=== PATIENT | male | born 1970 | race Caucasian/White ===

== ENCOUNTER → 2023-02-01 13:34 | Outpatient (BNVA) | payer MEDICAID, SELFPAY | PROVIDERS: PCP Family Medicine; Visit Provider Family Medicine | DX: S49.91XA Unspecified injury of right shoulder and upper arm, initial encounter (principal); X58.XXXA Exposure to other specified factors, initial encounter | CPT/HCPCS: 73030 ==

== ENCOUNTER 2023-12-03 23:03 | Emergency (ER) | payer MEDICAID, SELFPAY ==
[2023-12-03 23:04] VITALS: BP 165/95; PULSE 60; RESP 18; TEMP 36.7; O2SAT 93; BMI 28.3
--- NOTE | 2023-12-03 23:06 | W.ED.BACK ---
HPI - Back Pain/Injury General: Chief Complaint: General Medical Stated Complaint: back pain Time Seen by Provider: 12/03/23 23:06 History of Present Illness: 53-year-old male presents emergency department with complaints of left lower back and left lower quadrant abdominal pain that became worse tonight. He states the pain is intermittent and sharp stabbing type pain that when it occurs is a 6 out of 10. He states he also had an episode of nausea with vomiting this evening when the pain started. He states he feels like he is having difficulty starting his urinary stream. He states he does have a history of recent back surgery but has been doing well with that since the surgery. He denies numbness or tingling to the extremities. He denies fevers chills or night sweats. Associated symptoms: Reports abdominal pain, nausea and vomiting Review of Systems General: Reports: 10 or more systems reviewed and unremarkable except in HPI and below GI: Reports: abdominal pain, nausea and vomiting : Reports: flank pain Physical Exam Narrative: EXAM NARRATIVE: Constitutional: the patient appears well nourished and of normal development. Vital signs as documented. He does appear to be mildly uncomfortable. Alert and oriented-to person, place, time and situation. Head, eyes, ears, nose, mouth, throat: Normocephalic, atraumatic. Pupils-equal, round, reactive to light. No scleral icterus. Normal-appearing external ears. Normal appearing nasal turbinates, no drainage. No obvious oral lesions, posterior oropharynx without erythema or exudates. Neck: Supple, trachea is midline, no lymphadenopathy, no jugular venous distension, thyromegaly, or carotid bruits. Carotid upstrokes are brisk bilaterally. Lungs: clear to auscultation to all lung salazar. Symmetrical rise and fall of chest, no obvious signs of increased work of breathing at present. Cardiac: Regular rate and rhythm, positive S1, S2. No murmurs, rubs or gallops that I can appreciate Abdomen: Soft, non-tender to palpation, normal active bowel sounds to all quadrants. No palpable masses, no organomegaly and abdominal bruits. Back: No obvious deformity, no signs of infection at present. Positive slight left CVA tenderness. Extremities: 2+ pulses in the upper extremities that are equal bilaterally, 2+ pulses in the lower extremities that are equal bilaterally. Non-edematous. Moves all extremities well, sensation to all extremities are noted. Skin: Warm, dry, intact. Course Vital Signs: Vital signs: Vital Signs Temperature 98.0 F 12/03/23 23:04 Pulse Rate 66 12/04/23 02:04 Respiratory Rate 17 12/04/23 02:04 Blood Pressure 130/83 12/04/23 02:04 Pulse Oximetry 94 12/04/23 02:04 Oxygen Delivery Me thod Room Air 12/04/23 00:08 MDM - Back Pain/Injury Medical Decision Making Physical exam completed and documented I did obtain a CBC which demonstrated elevated white blood cell count of 13.1, CMP was obtained and demonstrated a elevated creatinine of 1.3 and his urinalysis reviewed and demonstrated 2+ ketones, 3+ blood, significant red blood cells per high-power field. CT scan of the abdomen pelvis was obtained and it was determined that he did have a 3 mm renal calculi and mild left hydronephrosis. I did have an extensive discussion with the patient regarding the importance of follow-up and did provide extensive discussion regarding the importance of follow-up with urology for additional evaluation and treatment of his renal calculi. Labs I reviewed the patient's lab results. 12/04/23 00:22 12/04/23 00:22 Radiology Impressions Abdomen/Pelvis CT 12/03/23 23:27 IMPRESSION: There is a 3 mm obstructing stone in the left bladder trigone with secondary mild left hydroureteronephrosis. COMMENTS: Consistent with the [employer]'s Incidental Findings Committee white paper (J Am Feng Radiol 2018): Any incidental renal lesion less than 1 cm or classified as too small to characterize, or any incidental cystic renal lesion characterized as simple-appearing, is likely benign. No follow-up imaging is recommended for these lesions per consensus recommendations based on imaging criteria. Laboratory Results WBC 13.11 10^3/uL (3.29-11.43) H 12/04/23 00:22 RBC 4.92 10^6/uL (3.85-5.65) 12/04/23 00:22 Hgb 14.50 g/dL (11.27-16.99) 12/04/23 00:22 Hct 45.2 % (37-53) 12/04/23 00:22 MCV 91.9 fl (82-101) 12/04/23 00:22 MCH 29.5 pg (27-33) 12/04/23 00: MCHC 32.1 g/dL (30-55) 12/04/23 00:22 RDW 11.9 % (12.1-15.1) L 12/04/23 00:22 Plt Count 207 10^3/cmm (157-399) 12/04/23 00:22 MPV 9.6 fL (7.4-10.4) 12/04/23 00:22 Neut % (Auto) 90.1 % 12/04/23 00:22 Lymph % (Auto) 2.4 % 12/04/23 00:22 [place] % (Auto) 6.7 % 12/04/23 00:22 Eos % (Auto) 0.2 % 12/04/23 00:22 Baso % (Auto) 0.2 % 12/04/23 00:22 Neut # (Auto) 11.82 10^3/uL (1.8-7.7) H 12/04/23 00:22 Lymph # (Auto) 0.3 10^3/uL (0.8-4.8) L 12/04/23 00:22 [place] # (Auto) 0.9 10^3/uL (0.2-0.9) 12/04/23 00:22 Eos # (Auto) 0.0 10^3/uL (0.0-0.8) 12/04/23 00:22 Baso # (Auto) 0.0 10^3/uL (0.0-0.1) 12/04/23 00: Nucleated RBC % (auto) 0 % 12/04/23 00: Nucleated RBCs # 0.0 /100WBC 12/04/23 00:22 Sodium 138 mmol/L (136-145) 12/04/23 00:22 Potassium 3.9 mmol/L (3.5-5.1) 12/04/23 00:22 Chloride 106 mmol/L (98-107) 12/04/23 00:22 Carbon Dioxide 21 mmol/L (22-29) L 12/04/23 00:22 Anion Gap 14.9 (5-19) 12/04/23 00:22 BUN 14 mg/dL (6-20) 12/04/23 00:22 Creatinine 1.3 mg/dL (0.7-1.2) H 12/04/23 00:22 GFR Calculation 58.2 mL/min (90-130) L 12/04/23:22 Glucose 140 mg/dL (65-115) H 12/04/23 00:22 Calculated Osmolality 289 mOsm/kg (285-295) 12/04/23 00: Calcium 8.9 mg/dL (8.5-10.5) 12/04/23: Total Bilirubin 0.7 mg/dL (0.15-1.2) 12/04/23:22 AST 12 U/L (0-40) 12/04/23: ALT 11 U/L (0-41) 12/04/23: Alkaline Phosphatase 63 U/L (40-130) 12/04/23 00:22 Total Protein 6.7 g/dL (6.6-8.7) 12/04/23: Albumin 4.1 g/dL (3.5-5.2) 12/04/23: Globulin 2.6 g/dL (1.3-4.6) 12/04/23 00:22 Lipase 23 U/L (13-60) 12/04/23 00:22 Urine Color Yellow (Yellow) 12/04/23 00:43 Urine Appearance Hazy (CLEAR) A 12/04/23 00:43 Urine pH 5 (5-7) 12/04/23 00:43 Ur Specific [place] 1.025 (1.005-1.030) 12/04/23 00:43 Urine Protein 1+ (Negative) H 12/04/23 00:43 Urine Glucose (UA) Norm (Normal) 12/04/23 00:43 Urine Ketones 2+ (Negative) H 12/04/23 00:43 Urine Blood 3+ (Negative) H 12/04/23 00:43 Urine Nitrate Negative (Negative) 12/04/23 00:43 Urine Bilirubin 1+ (Negative) H 12/04/23 00:43 Urine Urobilinogen 1 mg/dL (Negative) H 12/04/23 00:43 Ur Leukocyte Esterase Negative (Negative) 12/04/23 00: Urine RBC 50-80 /hpf (0-2) H 12/04/23 00:43 Urine WBC 0-4 /hpf (0-5) H 12/04/23 00:43 Ur Squamous Epith Cells None /hpf (0-5) 12/04/23 00:43 Calcium Oxalate Crystal 5-10 /hpf H 12/04/23 00:43 Amorphous Sediment Not Reportable 12/04/23 00:43 Urine Bacteria Trace /hpf (NONE) 12/04/23 00:43 Urine Mucus 3+ /hpf 12/04/23 00:43 All radiology interpretation(s) finalized by discharge Discharge Plan Discharge Patient Disposition: Home Clinical Impression: Bladder calculi Condition: Stable Prescriptions: New ketorolac 10 mg tablet 10 mg PO Q8H PRN (Reason: pain) 3 Days Qty: 9 0RF Flomax 0.4 mg capsule 0.4 mg PO DAILY Qty: 10 0RF ondansetron 4 mg tablet,disintegrating 4 mg PO Q8H PRN (Reason: nausea and vomiting) Qty: 14 0RF Discharge Orders: Discharge ED (Routine); Ordered 12/04/23 Ordered By: Nancy Barker Referrals: Mayito Yuen MD [Primary Care Provider] - Discharge Diet: Usual diet Discharge Activity: Resume usual activity Patient Instructions: Bladder Stones (ED) Activity Restrictions/Additional Instructions: As we discussed push water as much as possible over the next few days. You should pass stone shortly as it looks like it has already entered into your bladder. You may begin straining your urine and bring any stones with you to your follow-up urology appointment. You may use the pain and nausea meds prescribed to you as needed. You need to return to the emergency department for worsening back pain, abdominal pain, inability to urinate, fevers, severe flank pain, or any other concerns you may have. Coding Level of Care Code ED Fiscal Analyst for [facility]
--- NOTE | 2023-12-03 23:27 | CTR_ITS ---
PROCEDURE INFORMATION: Exam: CT Abdomen And Pelvis Without Contrast Exam date and time: 12/03/2023 11:37 PM Age: 53 years old Clinical indication: Pain; Prior surgery; Surgery date: 6+ months; Surgery type: Back and colon; Additional info: L back/l abdominal pain, HX stones, HX diverticulitis with sigmoidectomy TECHNIQUE: Imaging protocol: Computed tomography of the abdomen and pelvis without contrast. Radiation optimization: All CT scans at this facility use at least one of these dose optimization techniques: automated exposure control; mA and/or kV adjustment per patient size (includes targeted exams where dose is matched to clinical indication); or iterative reconstruction. COMPARISON: No relevant prior studies available. RADIATION DOSE METRICS: Total DLP (mGy-cm): 802.27 FINDINGS: Lungs: There are atelectatic changes in the dependent portions of bilateral lower lobes. Coronary arteries: There are mild coronary calcifications. Liver: There is a hypodense lesion in segment 4 of the liver, measuring 7 mm and another hypodense lesion in segment 7 of the liver measuring 9 mm, too small to characterize. Gallbladder and bile ducts: Normal. No calcified stones. No ductal dilation. Pancreas: Normal. No ductal dilation. Spleen: Normal. No splenomegaly. Adrenal glands: Normal. No mass. Kidneys and ureters: There is a simple cyst in the upper pole of the right kidney measuring 1.7 cm. No hydronephrosis on the right side. Stomach and bowel: Post sigmoidectomy. Diverticulosis of the remaining descending and transverse colon. Appendix: No evidence of appendicitis. Intraperitoneal space: Unremarkable. No free air. No significant fluid collection. Vasculature: Unremarkable. No abdominal aortic aneurysm. Lymph nodes: Unremarkable. No enlarged lymph nodes. Urinary bladder: There is a 3 mm obstructing stone in the left bladder trigone with secondary mild left hydroureteronephrosis and periureteric and perinephric fat stranding. Reproductive: Prostate gland calcifications. Bones/joints: Mild degenerative disease of bilateral acromioclavicular joints. Post posterior L4-L5 instrumentation with disc cage with no hardware complications. Soft tissues: There are bilateral fat containing inguinal hernias. CT/CT kidney stone [id number] IMPRESSION: There is a 3 mm obstructing stone in the left bladder trigone with secondary mild left hydroureteronephrosis. COMMENTS: Consistent with the [employer]'s Incidental Findings Committee white paper (J Am Feng Radiol 2018): Any incidental renal lesion less than 1 cm or classified as too small to characterize, or any incidental cystic renal lesion characterized as simple-appearing, is likely benign. No follow-up imaging is recommended for these lesions per consensus recommendations based on imaging criteria.
--- NOTE | 2023-12-03 23:27 | W.ED.ABDPA2 ---
HPI - Abdominal Pain General: Chief Complaint: General Medical Stated Complaint: back pain Time Seen by Provider: 12/03/23 23:06 Source: patient Mode of arrival: ambulatory Limitations: no limitations History of Present Illness: Patient is a 53-year-old male who presents to ED today with complaint of left lower abdominal and left lower back pain that he states started approximately 2 days ago. He does feel like pain started fairly acutely. He cannot seem to tell me whether it started in his back or abdomen. He states since onset pain has been constant. He has noticed some difficulty with urination. He does report one previous episode of kidney stones many many years ago but states that the pain then was nothing compared to today. He has had a previous sigmoidectomy secondary to a perforated diverticulitis with abscess. Patient without any running fevers. He has had some difficulty with bowel movements recently that he has been using stool softeners for. Reporting quite a bit of nausea. He was given Fentanyl and Zofran by EMS and feels better upon arrival. No fevers. MD elicited complaint: abdominal pain and other (back pain) Pertinent past history: kidney stones (one previously many years ago) Onset (ago): day(s) Pain Consistency: constant Location: LLQ and Other (back) Severity: moderate Quality: stabbing and sharp Radiation: none Exacerbating factors: nothing Relieving factors: nothing Associated Symptoms: Reports constipation and nausea; Denies chills, diarrhea, dysuria, fever(s), hematochezia, hematuria, hematemesis and melena Review of Systems Const: Denies: fever(s), chills, body aches, fatigue or malaise Card: Denies: chest pain Resp: Denies: dyspnea GI: Reports: abdominal pain, nausea and constipation; Denies: hematemesis, diarrhea, hematochezia or melena : Reports: difficulty urinating and urinary urgency; Denies: flank pain, dysuria, urinary frequency, urinary hesitancy, urinary dribbling, hematuria or genital pain Musc: Reports: back pain; Denies: neck pain, extremity pain, extremity swelling, joint pain or joint swelling Skin/Breast: Denies: rash Neuro: Denies: headache(s), numbness in extremities, weakness in extremities or sensory changes Physical Exam Const: COMMON NORMALS: no acute distress, average body habitus, patient oriented x3, no limitations, healthy appearing, alert and well nourished ORIENTATION/CONSCIOUSNESS: Yes awake, Yes oriented to person, Yes oriented to place and Yes oriented to time HENMT: COMMON NORMALS: normocephalic and atraumatic HEAD & SCALP: normal to inspection, normocephalic and atraumatic Neck/C-Spine: COMMON NORMALS: full ROM, no lymphadenopathy, supple, no meningeal signs and no JVD Chest: COMMONS NORMALS: normal inspection of the chest and normal palpation of entire chest wall Resp: COMMON NORMALS: normal respiratory effort and clear to auscultation bilaterally AUSCULTATION: clear to auscultation bilaterally Cardio: COMMON NORMALS: no JVD, regular rate and regular rhythm RATE: regular rate RHYTHM: regular rhythm GI: COMMON NORMALS: Normal to inspection, nondistended, normoactive bowel sounds present, Soft to palpation, No hepatosplenomegaly present and no masses INSPECTION: Yes normal to inspection AUSCULTATION: Yes normoactive bowel sounds PALPATION: Yes Soft to palpation, Yes Tenderness to palpation present (GI) Details: LLQ, No Guarding due to palpation present (GI), No Rigid due to palpation and Yes No hepatosplenomegaly present : COMMON NORMALS: Yes no CVA tenderness (tenderness below L CVA) BLADDER/KIDNEY EXAM: Yes no CVA tenderness (tenderness below L CVA) Back/Pelvis: COMMON NORMALS: no CVA tenderness (tenderness below L CVA) and thoracic and lumbar spine normal to inspection LUMBAR SPINE/LOWER BACK: Yes paraspinal muscle tenderness Lumbar paraspinal muscle tenderness: left Extremity: COMMON NORMALS: normal to inspection, no clubbing, cyanosis or edema, no calf tenderness and no pedal edema GENERAL: Yes normal exam except as noted Neuro: KAELA COMA SCALE: document GCS findings Kaela coma scale eye opening: Spontaneous Redford coma scale verbal response: Orientated Kaela coma scale motor response: Obey commands Redford coma scale total score: 15 COMMON NORMALS: patient oriented x3, moves all extremities, no focal motor deficits and no sensory deficits noted SENSORIUM/ORIENTATION: Yes alert, Yes oriented to person, Yes oriented to place and Yes oriented to time MENINGEAL SIGNS: Yes no meningeal signs Skin: COMMON NORMALS: no rashes or lesions noted GENERAL SKIN EXAM: no rashes or lesions noted Course Vital Signs: Vital signs: Vital Signs Temperature 98.0 F 04/09/24 23:04 Pulse Rate 60 12/03/23 23:04 Respiratory Rate 18 12/03/23 23:04 Blood Pressure 165/95 12/03/23 23:04 Pulse Oximetry 93 12/03/23 23:04 Oxygen Delivery Me thod Room Air 12/03/23 23:04 MDM - Abdominal Pain Medical Decision Making Patient has a 3 mm obstructing stone in the left bladder trigone with secondary mild left hydroureteronephrosis. Blood work overall is unremarkable. Pain is controllable here. Labs overall non-actionable. He was given a liter of fluids here. UA negative for infection. Will send patient home with urinary strainer and have him follow-up with urology. He will be sent home with nausea meds, pain medications, and Flomax. Strict return to ED precautions given. Medical Records I reviewed the patient's medical records. Lab Data I reviewed the patient's lab results. 12/04/23 00:22 12/04/23 00:22 Labs/Radiology: Radiology Impressions Abdomen/Pelvis CT 12/03/23 23:27 IMPRESSION: There is a 3 mm obstructing stone in the left bladder trigone with secondary mild left hydroureteronephrosis. COMMENTS: Consistent with the [employer]'s Incidental Findings Committee white paper (J Am Feng Radiol 2018): Any incidental renal lesion less than 1 cm or classified as too small to characterize, or any incidental cystic renal lesion characterized as simple-appearing, is likely benign. No follow-up imaging is recommended for these lesions per consensus recommendations based on imaging criteria. Laboratory Results WBC 13.11 10^3/uL (3.29-11.43) H 12/04/23 00:22 RBC 4.92 10^6/uL (3.85-5.65) 12/04/23 00:22 Hgb 14.50 g/dL (11.27-16.99) 12/04/23 00:22 Hct 45.2 % (37-53) 12/04/23 00:22 MCV 91.9 fl (82-101) 12/04/23 00:22 MCH 29.5 pg (27-33) 12/04/23 00:22 MCHC 32.1 g/dL (30-55) 12/04/23 00:22 RDW 11.9 % (12.1-15.1) L 12/04/23 00:22 Plt Count 207 10^3/cmm (157-399) 12/04/23 00:22 MPV 9.6 fL (7.4-10.4) 12/04/23 00:22 Neut % (Auto) 90.1 % 12/04/23 00:22 Lymph % (Auto) 2.4 % 12/04/23 00:22 [place] % (Auto) 6.7 % 12/04/23 00:22 Eos % (Auto) 0.2 % 12/04/23 00:22 Baso % (Auto) 0.2 % 12/04/23 00:22 Neut # (Auto) 11.82 10^3/uL (1.8-7.7) H 12/04/23 00:22 Lymph # (Auto) 0.3 10^3/uL (0.8-4.8) L 12/04/23 00:22 [place] # (Auto) 0.9 10^3/uL (0.2-0.9) 12/04/23 00:22 Eos # (Auto) 0.0 10^3/uL (0.0-0.8) 12/04/23 00:22 Baso # (Auto) 0.0 10^3/uL (0.0-0.1) 12/04/23 00:22 Nucleated RBC % (auto) 0 % 12/04/23 00: Nucleated RBCs # 0.0 /100WBC 12/04/23 00:22 Sodium 138 mmol/L (136-145) 12/04/23 00:22 Potassium 3.9 mmol/L (3.5-5.1) 12/04/23 00:22 Chloride 106 mmol/L (98-107) 12/04/23 00:22 Carbon Dioxide 21 mmol/L (22-29) L 12/04/23 00:22 Anion Gap 14.9 (5-19) 12/04/23 00:22 BUN 14 mg/dL (6-20) 12/04/23 00:22 Creatinine 1.3 mg/dL (0.7-1.2) H 12/04/23 00:22 GFR Calculation 58.2 mL/min (90-130) L 12/04/23 00:22 Glucose 140 mg/dL (65-115) H 12/04/23 00:22 Calculated Osmolality 289 mOsm/kg (285-295) 12/04/23 00:22 Calcium 8.9 mg/dL (8.5-10.5) 12/04/23 00:22 Total Bilirubin 0.7 mg/dL (0.15-1.2) 12/04/23 00:22 AST 12 U/L (0-40) 12/04/23 00:22 ALT 11 U/L (0-41) 12/04/23 00:22 Alkaline Phosphatase 63 U/L (40-130) 12/04/23 00:22 Total Protein 6.7 g/dL (6.6-8.7) 12/04/23 00:22 Albumin 4.1 g/dL (3.5-5.2) 12/04/23 00:22 Globulin 2.6 g/dL (1.3-4.6) 12/04/23 00:22 Lipase 23 U/L (13-60) 12/04/23 00:22 All radiology interpretation(s) finalized by discharge Discharge Plan Discharge Patient Disposition: Home Clinical Impression: Bladder calculi Condition: Stable Prescriptions: New ketorolac 10 mg tablet 10 mg PO Q8H PRN (Reason: pain) 3 Days Qty: 9 0RF Flomax 0.4 mg capsule 0.4 mg PO DAILY Qty: 10 0RF ondansetron 4 mg tablet,disintegrating 4 mg PO Q8H PRN (Reason: nausea and vomiting) Qty: 14 0RF Discharge Orders: Discharge ED (Routine); Ordered 12/04/23 Ordered By: Nancy Barker Referrals: Mayito Yuen MD [Primary Care Provider] - Patient Instructions: Bladder Stones (ED) Activity Restrictions/Additional Instructions: As we discussed push water as much as possible over the next few days. You should pass stone shortly as it looks like it has already entered into your bladder. You may begin straining your urine and bring any stones with you to your follow-up urology appointment. You may use the pain and nausea meds prescribed to you as needed. You need to return to the emergency department for worsening back pain, abdominal pain, inability to urinate, fevers, severe flank pain, or any other concerns you may have. Coding Level of Care Code ED Entrepreneurship Program Director for [facility]
[2023-12-04 00:08] VITALS: BP 136/88; PULSE 76; RESP 19; O2SAT 95
[2023-12-04 00:27] LABS: Basophils % 0.2 %; Eosinophils % 0.2 %; Hematocrit 45.2 % (37-53); Lymphocytes # 0.3 10^3/uL (0.8-4.8); Lymphocytes % 2.4 %; Mean Corpuscular HGB Conc 32.1 g/dL (30-55); Mean Corpuscular Hemoglobin 29.5 pg (27-33); Mean Corpuscular Volume 91.9 fl (82-101); Mean Platelet Volume 9.6 fL (7.4-10.4); Monocytes # 0.9 10^3/uL (0.2-0.9); Monocytes % 6.7 %; Neutrophils # 11.82 10^3/uL (1.8-7.7); Neutrophils % 90.1 %; Nucleated Red Blood Cells % 0 %; Platelet Count 207 10^3/cmm (157-399); Red Blood Count 4.92 10^6/uL (3.85-5.65); Red Cell Distribution Width 11.9 % (12.1-15.1); White Blood Count 13.11 10^3/uL (3.29-11.43)
[2023-12-04] MEDS: sodium chloride 0.9% 1,000 ML 999 ML IV (00:45)
[2023-12-04 00:49] LABS: Alanine Aminotransferase 11 U/L (0-41); Albumin Level 4.1 g/dL (3.5-5.2); Alkaline Phosphatase 63 U/L (40-130); Anion Gap 14.9 (5-19); Aspartate Amino Transferase 12 U/L (0-40); Blood Urea Nitrogen 14 mg/dL (6-20); Calcium 8.9 mg/dL (8.5-10.5); Carbon Dioxide 21 mmol/L (22-29); Chloride 106 mmol/L (98-107); Creatinine Clr Calc Pharmacy 82.6757; Globulin 2.6 g/dL (1.3-4.6); Glomerular Filtration Rate 58.2 mL/min (90-130); Glucose 140 mg/dL (65-115); Lipase 23 U/L (13-60); Osmolality Calculated 289 mOsm/kg (285-295); Potassium 3.9 mmol/L (3.5-5.1); Sodium 138 mmol/L (136-145); Total Bilirubin 0.7 mg/dL (0.15-1.2); Total Protein 6.7 g/dL (6.6-8.7)
[2023-12-04 01:02] VITALS: BP 124/79; PULSE 65; RESP 13; O2SAT 95
[2023-12-04 01:02] LABS: Bilirubin Urine 1+ (Negative); Blood Urine 3+ (Negative); Glucose Urine UA Norm (Normal); Ketones Urine 2+ (Negative); Nitrate Urine Negative (Negative); Protein Urine 1+ (Negative); Specific Gravity, Urine 1.025 (1.005-1.030); Urine Appearance Hazy (CLEAR); Urine Color Yellow (Yellow); pH Urine 5 (5-7)
[2023-12-04 01:03] LABS: Add Urine Microscopic? YES; Bacteria Urine TRACE /hpf; Leukocyte Esterase Urine Negative (Negative); Mucus Urine 3+ /hpf; RBC Urine 50-80 /hpf (0-2); Urobilinogen Urine 1 mg/dL (Negative); WBC Urine 0-4 /hpf (0-5)
[2023-12-04 01:04] LABS: Add Urine Culture? Yes
[2023-12-04 01:30] VITALS: BP 126/83; PULSE 78; RESP 19; O2SAT 98
[2023-12-04 02:00] VITALS: BP 135/79; PULSE 58; RESP 16
[2023-12-04 02:04] VITALS: BP 130/83; PULSE 66; RESP 17; O2SAT 94
--- NOTE | 2023-12-04 08:01 | DCPLANNER ---
Referral for urology sent to [facility] Per patients request. [id number]
--- NOTE | 2023-12-04 13:36 | DCPLANNER ---
[facility] is out of state until the end of next month, Angela called from the [facility] office
== END 2023-12-04 02:04 | disposition home or self-care (01) ==
PROVIDERS: Emergency Provider Physician Assistant; PCP Family Medicine
DX: N21.0 Calculus in bladder (principal)
CPT/HCPCS: 74176; 80053; 81001; 83690; 85025; 87086; 96360; 99284; J7030